=== PATIENT | male | born 1960 | race Caucasian/White ===

== ENCOUNTER 2019-07-13 08:31 | Day surgery (SDC) | payer OTHER ==
--- NOTE | 2019-07-08 10:02 | RAD REPORT ---
EXAM DESCRIPTION: RAD - Chest Pa And Lat (2 Views) - 07/08/2019 9:46 am CLINICAL HISTORY: preop Chest pain. COMPARISON: CHEST SINGLE VIEW dated 07/27/2014; CHEST SINGLE VIEW dated 07/14/2012 FINDINGS: The lungs are clear. The heart is normal in size. No displaced fractures. IMPRESSION: No acute or concerning finding suspected.
[2019-07-08 11:22] LABS: Albumin 4.3 g/dL (3.4-5.0); Bilirubin Direct 0.3 mg/dL (0-0.2)
[2019-07-08 11:24] LABS: Potassium 4.3 mmol/L (3.5-5.1)
[2019-07-08 11:47] LABS: Absolute Lymphocytes (CBC) 1.5 K/uL (0.7-4.9); Basophils % 0.7 % (0-1.3); Hematocrit 47.3 % (39.6-49.0); Lymphocytes % 27.8 % (15.3-44.8); MPV 10.9 fL (7.6-11.3); RBC Red Blood Cell Count 5.27 M/uL (4.33-5.43)
--- NOTE | 2019-07-08 14:56 | EKG ---
Test Date: 2019-07-08 Test Time: 09:23:11 [facility] Supervisor: ALEXX MEASUREMENT RESULTS: Intervals: Rate: 62 UT: 140 QRSD: 96 QT: 404 QTc: 410 [place]: P: 18 UT: 140 QRS: 19 T: 21 INTERPRETIVE STATEMENTS: Normal sinus rhythm Normal ECG Compared to ECG 07/27/2014 10:17:35 Fusion complex(es) no longer present Myocardial infarct finding no longer present Electronically Signed On 07-08-19 14:55:03 [employer] by Anderson Cid
[~2019-07-13 08:31] MED LIST: FENTANYL CITR 100 MCG/2 ML ONE; GLYCOPYRROLATE 0.2 MG/ML SYR ONE; LIDOCAINE 2% MPF 5 ML VIAL ONE; MIDAZOLAM HCL 2 MG/2 ML INJ ONE; NEOSTIGMINE 1 MG/ML -10 ML VIAL ONE; ONDANSETRON 4 MG/2 ML VIAL ONE; ROCURONIUM 50 MG/5 ML VIAL IV ONE; propofoL 200 MG/20 ML VIAL IV ONE
[2019-07-13] MEDS ORDERED: CEFOXITIN/SWI 1gm 1 GM/10 ML SYR ONE (08:52)
[2019-07-13] MEDS ORDERED: Ringers Lactate 1,000 ML IV ONE ×2 (08:52→11:32)
[2019-07-13] MEDS: HYDROMORPHONE HCL 2 MG/ML inj ONE ×3 (11:06→11:40)
[2019-07-13] MEDS ORDERED: PROMETHAZINE INJ 25 MG/ML AMP ONE (11:09)
[2019-07-13] MEDS ORDERED: GLYCOPYRROLATE 0.2 MG/ML SYR ONE (11:38)
[2019-07-13] MEDS ORDERED: HYDROCODONE/APAP 7.5/325 MG TAB ONE (12:20)
[2019-07-13 14:58] VITALS: BP 115/64; TEMP 97.2; O2SAT 99
--- NOTE | 2019-07-13 21:43 | OP ---
Date of Procedure: 07/13/2019 Surgeon: Flynn Geronimo MD Preoperative Diagnosis: Symptomatic cholelithiasis. Postoperative Diagnosis: Symptomatic cholelithiasis with early cirrhosis. Procedure Performed: Laparoscopic cholecystectomy. Estimated Blood Loss: Minimal. Specimen: Gallbladder. Findings: As above. Anesthesia: General. Complications: None. Disposition: Patient tolerated the procedure in stable condition, taken to Recovery in good general condition. Procedure In Detail: Patient was brought to the OR, and placed in supine position. General anesthes ia was begun. The patient was prepped and draped in the usual sterile fashion. Marcaine 0.5% was in filtrated locally. A 15 blade was used to make a 1 cm supraumbilical midline incision. Subcutaneous tissue divided. The fascia was identified and divided. A #1 Vicryl stay suture was placed. Perito kevin cavity was entered with sharp and blunt dissection. A 12 mm trocar was placed into the peritone al cavity under direct vision. Pneumoperitoneum was established. Three 5 mm trocars were placed, 1 in the epigastrium just to the right of midline and 2 in the right subcostal region. Laparoscopy rev ealed chronic inflammation of the gallbladder with early evidence of cirrhosis macronodular in nature . Subsequently, fundus was retracted superiorly. Infundibulum was identified and retracted inferola terally. Cystic duct and cystic artery were clearly identified with blunt dissection. Clips placed. Both structures divided. Cautery was used to remove the gallbladder from the liver bed. Bleeding on the liver bed was controlled with cautery. The gallbladder was retrieved through the umbilicus vi a an EndoCatch bag. Right upper quadrant was irrigated. Effluent was clear. No evidence of bleedin g or bile leakage appreciated. Subsequently, all trocars were removed under direct vision. Stay sut ures were tied to each other to reapproximate the fascial defect. Subcutaneous wounds were irrigated , bleeding was controlled with cautery. A 3-0 chromic was used to approximate subcutaneous tissues a nd close the skin. Sterile dressing was applied. Patient was awakened and taken to Recovery in good general condition. Discharge Note: Patient will go to Day Surgery, then home when stable. Disposition: Home. Condition: Stable. Discharge Instructions: Resume home medications and diet. Activity as tolerated. Remove outer dres sing in 2 days. Shower. Keep wound clean and dry. Keep Steri-Strips on at all times. Incentive sp irometry was ordered. Tylenol No. 3 one tablet p.o. q.4 p.r.n. pain. Follow up in my office in 1 we ek. Call for appointment. Findings of the surgery were discussed in detail with the . ALLA/MACARENA Voice ID: [id number] Report ID: [id number]
== END 2019-07-13 13:45 | disposition home or self-care (01) ==
LOC: OR 08:31
PROVIDERS: ATTEND Surgery
PROC: 0FT44ZZ Resection of Gallbladder, Percutaneous Endoscopic Approach (ICD-10-PCS; principal; 2019-07-13 10:00)
DX: K80.10 Calculus of gallbladder with chronic cholecystitis without obstruction (principal); K74.60 Unspecified cirrhosis of liver; E11.9 Type 2 diabetes mellitus without complications; I10 Essential (primary) hypertension; Z88.2 Allergy status to sulfonamides
CPT/HCPCS: 93005; 85025; 80048; 36415; 82150; 82947; 80076; 88304; 71046; 47562; J2704; J2710; J2550; J2250; J1170; J3010; J7120 ×2; J2405

== ENCOUNTER 2021-06-03 19:01 | Emergency (ER) | payer OTHER ==
[2021-06-03 20:29] LABS: Absolute Lymphocytes (CBC) 1.8 K/uL (0.7-4.9); Basophils % 0.6 % (0-1.3); Hematocrit 49.3 % (39.6-49.0); Lymphocytes % 21.4 % (15.3-44.8); MPV 9.1 fL (7.6-11.3); RBC Red Blood Cell Count 5.45 M/uL (4.33-5.43)
[2021-06-03 20:30] LABS: Protime INR 1.04
[2021-06-03 20:46] LABS: AST/SGOT 69 U/L (15-37); Alkaline Phosphatase 68 U/L (45-117); BUN Blood Urea Nitrogen 17 mg/dL (7-18); Bicarbonate 30 mmol/L (21-32); Bilirubin Direct 0.2 mg/dL (0-0.2); Bilirubin Total 0.7 mg/dL (0.2-1.0); Glucose Level 125 mg/dL (74-106); Magnesium 2.5 mg/dL (1.8-2.4); NT PRO-BNP 57 pg/mL (<125); Potassium 4.1 mmol/L (3.5-5.1); Protein, Total 7.9 g/dL (6.4-8.2); Sodium Level 140 mmol/L (136-145); Troponin (Emerg Dept Use Only) < 0.02 ng/mL (0.0-0.045)
[2021-06-03 20:53] LABS: ALT/SGPT 110 U/L (12-78)
--- NOTE | 2021-06-03 21:45 | RAD REPORT ---
EXAM DESCRIPTION: Delmi Single View06/03/2021 8:58 pm CLINICAL HISTORY: Palpitations COMPARISON: 2018 FINDINGS: Interstitial lung pattern appears mildly prominent. The heart is mildly enlarged IMPRESSION: Mildly prominent interstitial lung pattern may indicate mild interstitial pulmonary nader ma
[2021-06-03 22:00] LABS: Urine Blood Negative (Negative); Urine Glucose Negative (Negative); Urine Protein Negative (Negative); Urine pH 5.5 (5.0-7.0)
--- NOTE | 2021-06-04 00:21 | ER ---
Nurse's Notes [facility] Name: Tom Zarate Age: 61 yrs Sex: Male : 1960 Arrival Date: 06/03/2021 Time: 19:02 Bed 14 Private MD: Diagnosis: Palpitations Presentation: 06/03 19:19 Chief complaint: Patient states: he notice a "fluttering" in his chest approx an hour bb ago checked his BP which was high seemed like his heart is skipping a beat. Coronavirus screen: At this time, the client does not indicate any symptoms associated with coronavirus-19. Ebola Screen: No symptoms or risks identified at this time. Initial Sepsis Screen: Does the patient meet any 2 criteria? No. Patient's initial sepsis screen is negative. Does the patient have a suspected source of infection? No. Patient's initial sepsis screen is negative. Risk Assessment: Do you want to hurt yourself or someone else? Patient reports no desire to harm self or others. Onset of symptoms was June 03, 2021. 19:19 Method Of Arrival: Ambulatory bb 19:19 Acuity: JONATAN 2 bb Triage Assessment: 19:24 General: Appears in no apparent distress. obese, Behavior is calm, cooperative. Pain: bb Denies pain. Neuro: Level of Consciousness is awake, alert, obeys commands, Oriented to person, place, time, situation. Cardiovascular: Capillary refill < 3 seconds Patient's skin is warm and dry. Respiratory: Airway is patent Respiratory effort is even, unlabored, Respiratory pattern is regular. GI: No deficits noted. Derm: Skin is pink, warm \\T\\ dry. Musculoskeletal: Circulation, motion, and sensation intact. Historical: - Allergies: 19:24 Keflex; bb 19:24 Sulfa (Sulfonamide Antibiotics); bb - Home Meds: 19:24 None [Active]; bb - PMHx: 19:24 None; bb - PSHx: 19:24 Tonsillectomy; choleceystectomy; toe surgery; bb - Immunization history:: Adult Immunizations up to date, Client reports receiving the Jori \\T\\ Jori single-dose vaccine. - Social history:: Smoking status: Patient denies any tobacco usage or history of. Patient uses alcohol, occasionally. Patient/guardian denies using street drugs. Screenin:35 Abuse screen: Denies threats or abuse. Nutritional screening: No deficits noted. bb Tuberculosis screening: No symptoms or risk factors identified. Fall Risk None identified. Assessment: 19:35 Reassessment: No changes from previously documented assessment. Patient is alert, bb oriented x 3, equal unlabored respirations, skin warm/dry/pink. see triage assessment. 20:46 Reassessment: Patient is alert, oriented x 3, equal unlabored respirations, skin bb warm/dry/pink. awaiting diagnostic results. 21:58 Reassessment: Patient is alert, oriented x 3, equal unlabored respirations, skin bb warm/dry/pink. Dr Lo at bedside for discussion of findings and recommendations of additional diagnostic tests. 06/04 00:20 Reassessment: Patient appears in no apparent distress at this time. SR with no ectopy cc4 noted; Voices no complaints. Patient states symptoms have improved. Vital Signs: 06/03 19:19 BP 169 / 104; Pulse 71; Resp 16 S; Temp 99(O); Pulse Ox 99% on R/A; Weight 131.54 kg bb (R); Height 5 ft. 9 in. (175.26 cm) (R); Pain 0/10; 20:47 BP 164 / 90; Pulse 79; Resp 22 S; Pulse Ox 97% on R/A; bb 21:59 BP 163 / 81; Pulse 74; Resp 20 S; Pulse Ox 97% on R/A; bb 06/04 00:20 BP 157 / 96; Pulse 74; Resp 20; Temp 98.1; Pulse Ox 96% on R/A; cc4 06/03 19:19 Body Mass Index 42.83 (131.54 kg, 175.26 cm) ED Course: 06/03 19:02 Patient arrived in ED. cf2 19:24 Triage completed. bb 19:24 Arm band placed on Patient placed in an exam room, on a stretcher. EKG completed in triage. Results shown to MD. 19:35 Patient has correct armband on for positive identification. Placed in gown. Bed in low bb position. Call light in reach. Side rails up X 1. patient monitor on. Pulse ox on. NIBP on. 19:36 Nick Lo MD is Attending Physician. [facility] 20:03 Edita Gomes, RN is Primary Nurse. cc4 20:16 Basic Metabolic Panel Sent. cc4 20:16 TSH Sent. cc4 20:16 Initial lab(s) drawn, by ak, sent to lab. Inserted saline lock: 20 gauge in right bb antecubital area, using aseptic technique. Blood collected. 20:17 Basic Metabolic Panel Sent. cc4 20:17 CBC with Diff Sent. cc4 20:17 XRAY Chest (1 view) Sent. cc4 20:17 LFT's Sent. cc4 20:17 Magnesium Sent. cc4 20:17 NT PRO-BNP Sent. cc4 20:17 PT-INR Sent. cc4 20:17 Troponin (emerg Dept Use Only) Sent. cc4 20:17 CBC with Automated Diff Sent. cc4 20:58 XRAY Chest (1 view) In Process Unspecified. EDMS 21:31 D-Dimer Sent. oe 22:08 CT Chest For PE Angio Sent. cc4 22:35 CT Chest For PE Angio In Process Unspecified. EDMS 23:47 Troponin (emerg Dept Use Only) Sent. cc4 06/04 00:20 Anderson Cid MD is Referral Physician. [facility] 00:20 No provider procedures requiring assistance completed. cc4 00:20 IV discontinued, intact, bleeding controlled, No redness/swelling at site. Pressure cc4 dressing applied. Administered Medications: No medications were administered Outcome: 00:20 Discharge ordered by . [facility] 00:20 Discharged to home ambulatory. cc4 00:20 Condition: stable 00:20 Discharge instructions given to patient, Instructed on discharge instructions, follow up and referral plans. Demonstrated understanding of instructions, follow-up care. 00:35 Patient left the ED. cc4 Signatures: Dispatcher [employer] EDMervat Espinal, RN RN Jeremy Silva [place] 2 Nick Lo MD MD [facility] Edita Gomes, RN RN cc4
--- NOTE | 2021-06-04 00:22 | EDPHYS ---
Physician Documentation [facility] Name: Tom Zarate Age: 61 yrs Sex: Male : 1960 Arrival Date: 06/03/2021 Time: 19:02 Bed 14 Private MD: ED Physician Nick Lo HPI: 06/03 19:40 This 61 yrs old Male presents to ER via Ambulatory with complaints of High mh7 Blood Pressure, GASSY, FEELS LIKE HEARTS FLUTTERING. 19:40 The patient presents with a history of irregular heart beat. mh7 19:40 Context: The symptoms occur at rest. Onset: The symptoms/episode began/occurred today, mh7 at 18:30. Duration: The patient or guardian reports multiple episodes, that are intermittent, that wax and wane. Modifying factors: The symptoms are aggravated by nothing. The symptoms are alleviated by nothing. Associated signs and symptoms: Pertinent negatives: anxiety, chest pain, cough, fever, lightheadedness, nausea, SOB, syncope, near-syncope, unusual stressors, vertigo, vomiting. Severity of symptoms: At their worst the symptoms were moderate today, in the emergency department the symptoms have improved moderately. Historical: - Allergies: 19:24 Keflex; bb 19:24 Sulfa (Sulfonamide Antibiotics); bb - Home Meds: 19:24 None [Active]; bb - PMHx: 19:24 None; bb - PSHx: 19:24 Tonsillectomy; choleceystectomy; toe surgery; bb - Immunization history:: Adult Immunizations up to date, Client reports receiving the Jori \T\ Jori single-dose vaccine. - Social history:: Smoking status: Patient denies any tobacco usage or history of. Patient uses alcohol, occasionally. Patient/guardian denies using street drugs. ROS: 19:40 Constitutional: Negative for fever, chills, and weight loss, Eyes: Negative for injury, mh7 pain, redness, and discharge, ENT: Negative for injury, pain, and discharge, Neck: Negative for injury, pain, and swelling, Respiratory: Negative for shortness of breath, cough, wheezing, and pleuritic chest pain, Abdomen/GI: Negative for abdominal pain, nausea, vomiting, diarrhea, and constipation, Back: Negative for injury and pain, : Negative for injury, bleeding, discharge, and swelling, MS/Extremity: Negative for injury and deformity, Skin: Negative for injury, rash, and discoloration, Neuro: Negative for headache, weakness, numbness, tingling, and seizure, Psych: Negative for depression, anxiety, suicide ideation, homicidal ideation, and hallucinations, Allergy/Immunology: Negative for hives, rash, and allergies, Endocrine: Negative for neck swelling, polydipsia, polyuria, polyphagia, and marked weight changes, Hematologic/Lymphatic: Negative for swollen nodes, abnormal bleeding, and unusual bruising. Exam: 19:40 Head/Face: Normocephalic, atraumatic. Eyes: Pupils equal round and reactive to light, mh7 extra-ocular motions intact. Lids and lashes normal. Conjunctiva and sclera are non-icteric and not injected. Cornea within normal limits. Periorbital areas with no swelling, redness, or edema. Neck: Trachea midline, no thyromegaly or masses palpated, and no cervical lymphadenopathy. Supple, full range of motion without nuchal rigidity, or vertebral point tenderness. No Meningismus. Chest/axilla: Normal chest wall appearance and motion. Nontender with no deformity. No lesions are appreciated. Cardiovascular: Regular rate and rhythm with a normal S1 and S2. No gallops, murmurs, or rubs. Normal PMI, no JVD. No pulse deficits. Respiratory: Lungs have equal breath sounds bilaterally, clear to auscultation and percussion. No rales, rhonchi or wheezes noted. No increased work of breathing, no retractions or nasal flaring. Abdomen/GI: Soft, non-tender, with normal bowel sounds. No distension or tympany. No guarding or rebound. No evidence of tenderness throughout. Back: No spinal tenderness. No costovertebral tenderness. Full range of motion. Skin: Warm, dry with normal turgor. Normal color with no rashes, no lesions, and no evidence of cellulitis. MS/ Extremity: Pulses equal, no cyanosis. Neurovascular intact. Full, normal range of motion. Neuro: Awake and alert, GCS 15, oriented to person, place, time, and situation. Cranial nerves II-XII grossly intact. Motor strength 5/5 in all extremities. Sensory grossly intact. Cerebellar exam normal. Normal gait. Psych: Awake, alert, with orientation to person, place and time. Behavior, mood, and affect are within normal limits. 19:40 Constitutional: The patient appears in no acute distress, alert, awake, anxious. Vital Signs: 19:19 BP 169 / 104; Pulse 71; Resp 16 S; Temp 99(O); Pulse Ox 99% on R/A; Weight 131.54 kg bb (R); Height 5 ft. 9 in. (175.26 cm) (R); Pain 0/10; 20:47 BP 164 / 90; Pulse 79; Resp 22 S; Pulse Ox 97% on R/A; bb 21:59 BP 163 / 81; Pulse 74; Resp 20 S; Pulse Ox 97% on R/A; bb 06/04 00:20 BP 157 / 96; Pulse 74; Resp 20; Temp 98.1; Pulse Ox 96% on R/A; cc4 06/03 19:19 Body Mass Index 42.83 (131.54 kg, 175.26 cm) MDM: 00:19 Differential diagnosis: arrythmia, dehydration, stress disorder, Palpitations. Data [facility] reviewed: vital signs, nurses notes, old medical records, lab test result(s), cardiac enzymes, CBC, electrolytes, urinalysis, EKG, radiologic studies, CT scan, plain films. Data interpreted: Pulse oximetry: on room air is 97 %. Interpretation: normal. Counseling: I had a detailed discussion with the patient and/or guardian regarding: the historical points, exam findings, and any diagnostic results supporting the discharge/admit diagnosis, the presence of at least one elevated blood pressure reading (>120/80) during this emergency department visit, lab results, radiology results. Counseling: I had a detailed discussion with the patient and/or guardian regarding: to return to the emergency department if symptoms worsen or persist or if there are any questions or concerns that arise at home. Response to treatment: the patient's symptoms have resolved after treatment, the patient's blood pressure is in an acceptable range, mental status has returned to baseline, the patient no longer shows bradycardia, the patient is not short of breath, the patient is not tachycardic, the patient's pain is gone, the patient's temperature has normalized. Refusal of service: The patient/guardian displays adequate decision making capability and despite a detailed discussion of alternatives, benefits, risks, and consequences refuses: Admission to the hospital for further work-up and treatment. 00:20 Patient medically screened. [facility] 06/03 20:02 Order name: Basic Metabolic Panel [facility] 06/03 20:02 Order name: CBC with Diff [facility] 06/03 20:02 Order name: LFT's; Complete Time: 21:12 [facility] 06/03 20:02 Order name: Magnesium; Complete Time: 21:12 [facility] 06/03 20:02 Order name: NT PRO-BNP; Complete Time: 21:12 [facility] 06/03 20:02 Order name: PT-INR; Complete Time: 21:56 [facility] 06/03 20:02 Order name: Troponin (emerg Dept Use Only); Complete Time: 21:12 [facility] 06/03 20:02 Order name: TSH; Complete Time: 21:12 [facility] 06/03 20:02 Order name: Basic Metabolic Panel; Complete Time: 21:12 [facility] 06/03 20:03 Order name: CBC with Automated Diff; Complete Time: 20:38 [facility] 06/03 21:22 Order name: D-Dimer; Complete Time: 21:56 [facility] 06/03 21:59 Order name: Urine Dipstick-Ancillary; Complete Time: 22:05 [facility] 06/03 23:02 Order name: Troponin (emerg Dept Use Only); Complete Time: 00:09 [facility] 06/03 20:02 Order name: XRAY Chest (1 view); Complete Time: 21:50 [facility] 06/03 20:02 Order name: EKG; Complete Time: 20:03 [facility] 06/03 20:02 Order name: Cardiac monitoring; Complete Time: 20:17 [facility] 06/03 20:02 Order name: EKG - Nurse/Tech; Complete Time: 20:17 [facility] 06/03 20:02 Order name: IV Saline Lock; Complete Time: 20:17 [facility] 06/03 20:02 Order name: Labs collected and sent; Complete Time: 20:17 [facility] 06/03 20:02 Order name: O2 Per Protocol; Complete Time: 22:01 [facility] 06/03 20:02 Order name: O2 Sat Monitoring; Complete Time: 20:17 [facility] 06/03 21:13 Order name: Urine Dipstick-Ancillary (obtain specimen); Complete Time: 21:59 [facility] 06/03 22:00 Order name: CT Chest For PE Angio [facility] Administered Medications: No medications were administered Disposition Summary: 06/04/21 00:20 Discharge Ordered Location: Home [facility] Problem: an acute exacerbation [facility] Symptoms: have improved [facility] Condition: Stable [facility] Diagnosis - Palpitations [facility] Followup: [facility] - With: Private Physician - When: 1 - 2 days - Reason: Worsening of condition, Recheck today's complaints, Continuance of care, Re-evaluation by your physician Followup: [facility] - With: Anderson Cid MD - When: 1 - 2 days - Reason: Worsening of condition, Recheck today's complaints Discharge Instructions: - Discharge Summary Sheet [facility] - Palpitations, [id number] [facility] Forms: - Medication Reconciliation Form [facility] - Thank You Letter [facility] - Antibiotic Education [facility] - Prescription Opioid Use [facility] Signatures: Dispatcher [employer] Mervat Barros RN RN bb Holmes, Maurice, MD MD [facility] Corrections: (The following items were deleted from the chart) 06/03 21:21 21:13 D-DIMER+[email or web address].LAB.BRZ ordered. EDMS EDMS
[2021-06-04 00:45] VITALS: TEMP 99
[2021-06-04 00:46] VITALS: O2SAT 97
[2021-06-04 00:47] VITALS: BP 163/81
--- NOTE | 2021-06-04 09:54 | RAD REPORT ---
EXAM DESCRIPTION: CT - Chest For Pe Angio - 06/04/2021 6:31 am CLINICAL HISTORY: PALPITATIONS COMPARISON: None. TECHNIQUE: Axial CT imaging of the thorax utilizing intravenous contrast. Reformatted multiplanar im ages obtained including reconstructed maximum intensity projection images. This exam was performed according to our departmental dose-optimization program which includes automa davis exposure control, adjustment of the mA and/or kV according to patient size and/or use of iterativ e reconstruction technique FINDINGS: PULMONARY ARTERIES: Nondiagnostic peripheral pulmonary arteries due to lack of adequate co ntrast. Suboptimal bolus timing. There is no large central pulmonary artery filling defect. Normal ca liber main pulmonary artery. HEART/GREAT VESSELS: The heart is normal in size. There are moderate coronary calcifications. Normal caliber thoracic aorta with minimal atherosclerosis. MEDIASTINUM/SHON: No lymphadenopathy. Normal appearance of the trachea and main bronchi. Unremarkable esophagus. LUNGS/PLEURA: There is a noncalcified 6 mm solid nodule posterior lateral left lower axial image 95 o f series 401. A 3 mm nodule is present within the right middle lobe which is linear sagittal views co mpatible with full scarring. There is no airspace consolidation or edema. Pleural spaces are clear. M inimal subpleural dependent lung changes within both lower lobes. CHEST WALL/SOFT TISSUES: Unremarkable thyroid. No axillary lymphadenopathy. Mild lower thoracic degen erative change. UPPER ABDOMEN: Mild fatty liver infiltration. Normal spleen. No free air. IMPRESSION: 1. There is no large central pulmonary embolism. Nondiagnostic peripheral pulmonary bridget ruth assessment due to suboptimal bolus timing. 2. 6 mm left lower lobe solid pulmonary nodule. Recommend a non-contrast Chest CT at 3-6 months. If patient is high risk for malignancy, recommend an additional non-contrast Chest CT at 18-24 months; if patient is low risk for malignancy a non-contra st Chest CT at 18-24 months is optional. These guidelines do not apply to immunocompromised patients and patients with cancer. Follow up in pa tients with significant comorbidities as clinically warranted. For lung cancer screening, adhere to L toña-RADS guidelines. Reference: Radiology. 2017; 284(1):228-43. 3. Mild fatty liver infiltration. Electronically signed by: Iqra Gurrola DO 06/03/2021 11:00 PM TRANSPORTATION DIRECTOR Due to temporary technical issues with the PACS/Fluency reporting system, reports are being signed by the in house radiologists without review as a courtesy to insure prompt reporting. The interpreting radiologist is fully responsible for the content of the report.
--- NOTE | 2021-06-04 18:25 | EKG ---
Test Date: 2021-06-03 Test Time: 19:30:42 Accounting File Clerk: SHARAN MEASUREMENT RESULTS: Intervals: Rate: 82 [place]: 144 QRSD: 90 QT: 394 QTc: 460 [place]: P: 27 [place]: 144 QRS: 7 T: 26 INTERPRETIVE STATEMENTS: Sinus rhythm with premature atrial complexes Cannot rule out Inferior infarct, age undetermined Abnormal ECG Compared to ECG 07/08/2019 09:23:11 Atrial premature complex(es) now present Myocardial infarct finding now present Electronically Signed On 06-04-21 18:23:35 BIOMETRIC SCREENER by Anderson Cid
== END 2021-06-04 00:35 | disposition home or self-care (01) ==
LOC: ER 19:01
DX: R00.2 Palpitations (principal); Z88.2 Allergy status to sulfonamides; Z88.8 Allergy status to other drugs, medicaments and biological substances
CPT/HCPCS: 93005; 85025; 80048; 36415; 83735; 85610; 85379; 80076; 84443; 81003; 84484 ×2; 83880; 71275; 71045; 99284; Q9967